=== PATIENT | male | born 1965 | race Caucasian/White ===

== ENCOUNTER 2021-05-26 21:15 | Observation (INO) | payer OTHER ==
[~2021-05-26] VITALS: Ht 185.4 cm; Wt 120.2 kg
[2021-05-26] MEDS ORDERED: NITROGLYCERIN 1GM OINT 1 INCH/1GM TD ONE ×2 (21:30→22:51)
[2021-05-26] MEDS ORDERED: ASPIRIN 81MG CHEW TAB PO ONE (21:30)
[2021-05-26 22:14] LABS: BASOPHILS % (AUTO) 0.6 % (0.0-5.0); EOSINOPHILS % (AUTO) 0.9 % (0.0-8.0); LYMPHOCYTES % (AUTO) 32.6 % (21.0-51.0); MEAN CORPUSCULAR HEMOGLOBIN 31.2 pg (27.0-33.0); MEAN CORPUSCULAR VOLUME 91.6 fL (79-99); MONOCYTES % (AUTO) 8.6 % (3.0-13.0); NEUTROPHILS % (AUTO) 56.9 % (40.0-77.0); PLATELET COUNT (AUTO) 270 K/uL (130-400); RED BLOOD CELL COUNT(AUTO) 5.13 MIL/uL (4.50-6.20); RED CELL DISTRIBUTION WIDTH 11.9 % (11.0-15.5)
[2021-05-26 22:23] LABS: CREATININE 1.2 mg/dL (0.5-1.5); POTASSIUM 4.2 mmol/L (3.5-5.1)
[2021-05-26 22:27] LABS: ALBUMIN 3.5 g/dL (3.5-5.0); BILIRUBIN,TOTAL 0.5 mg/dL (0.2-1.0); TOTAL PROTEIN, SERUM 7.2 g/dL (6.0-8.3)
[2021-05-26] MEDS ORDERED: ASPIRIN 81MG CHEW TAB ONE (22:51)
[2021-05-26] MEDS ORDERED: ONDANSETRON 4MG INJ IV PRN (23:00)
[2021-05-27] VITALS (7 sets, daily range): BP systolic 94–132; BP diastolic 51–77
[2021-05-27] MEDS ORDERED: ATOR40TA71 PO (01:48)
[2021-05-27] MEDS ORDERED: LISI10TA24 PO (01:48)
[2021-05-27] MEDS ORDERED: CLOP75TA14 PO (01:48)
[2021-05-27] MEDS ORDERED: METO25TA6 PO (01:48)
[2021-05-27] MEDS ORDERED: AEC81 PO (01:48)
[2021-05-27 06:19] LABS: BASOPHILS % (AUTO) 0.8 % (0.0-5.0); LYMPHOCYTES % (AUTO) 27.1 % (21.0-51.0); MEAN CORPUSCULAR HEMOGLOBIN 31.4 pg (27.0-33.0); MEAN CORPUSCULAR HGB CONC 33.9 g/dL (32.0-36.0); MEAN CORPUSCULAR VOLUME 92.8 fL (79-99); MONOCYTES % (AUTO) 6.3 % (3.0-13.0); NEUTROPHILS % (AUTO) 63.3 % (40.0-77.0); PLATELET COUNT (AUTO) 246 K/uL (130-400); RED BLOOD CELL COUNT(AUTO) 4.74 MIL/uL (4.50-6.20); RED CELL DISTRIBUTION WIDTH 12.1 % (11.0-15.5); WHITE BLOOD COUNT (AUTO) 10.8 K/uL (4.8-10.8)
[2021-05-27 06:33] LABS: CREATININE 1.1 mg/dL (0.5-1.5); MAGNESIUM 2.2 mg/dL (1.80-2.40); PHOSPHORUS 4.3 mg/dL (2.5-4.9); POTASSIUM 3.8 mmol/L (3.5-5.1)
[2021-05-27] MEDS ORDERED: ENOXAPARIN SODIUM 40 MG/0.4 ML SYRINGE SQ SCH (09:00)
[2021-05-27] MEDS ORDERED: LISINOPRIL 10 MG TABLET PO SCH (09:00)
[2021-05-27] MEDS: FAMOTIDINE 20MG VIAL IV SCH ×2 (09:50→21:26)
[2021-05-27] MEDS: ASPIRIN 81 MG EC TAB PO SCH (09:50)
[2021-05-27] MEDS: CLOPIDOGREL 75MG TAB PO SCH (09:51)
[2021-05-27] MEDS: METOPROLOL TARTRATE 25 MG TAB PO SCH ×2 (09:51→21:26)
[2021-05-27] MEDS ORDERED: NITROGLYCERIN 0.4 MG SL TAB SL PRN (11:00)
[2021-05-27] MEDS ORDERED: ATORVASTATIN 40 MG TABLET PO SCH (21:00)
[2021-05-28] VITALS (9 sets, daily range): BP systolic 113–137; BP diastolic 67–79
[2021-05-28 04:11] LABS: BASOPHILS % (AUTO) 0.9 % (0.0-5.0); HEMATOCRIT 43.8 % (42-54); MEAN CORPUSCULAR HGB CONC 33.6 g/dL (32.0-36.0); MEAN CORPUSCULAR VOLUME 92.4 fL (79-99); MONOCYTES % (AUTO) 7.8 % (3.0-13.0); NEUTROPHILS % (AUTO) 52.9 % (40.0-77.0); PLATELET COUNT (AUTO) 249 K/uL (130-400); RED BLOOD CELL COUNT(AUTO) 4.74 MIL/uL (4.50-6.20); RED CELL DISTRIBUTION WIDTH 11.8 % (11.0-15.5); WHITE BLOOD COUNT (AUTO) 10.3 K/uL (4.8-10.8)
[2021-05-28 04:28] LABS: ALBUMIN 3.2 g/dL (3.5-5.0); BILIRUBIN,TOTAL 0.7 mg/dL (0.2-1.0); CREATININE 1.2 mg/dL (0.5-1.5); TOTAL PROTEIN, SERUM 6.5 g/dL (6.0-8.3)
[2021-05-28 04:45] LABS: INR 0.99 (0.85-1.15); PROTHROMBIN TIME 10.8 SEC (9.6-11.6)
[2021-05-28 04:46] LABS: PARTIAL THROMBOPLASTIN TIME 24.2 SEC (26.3-35.5)
[2021-05-28 05:10] LABS: MAGNESIUM 2.3 mg/dL (1.80-2.40)
[2021-05-28] MEDS ORDERED: IOHEXOL 350 MG/ML 100ML INFUS..BTL IV ONE (08:08)
[2021-05-28] MEDS ORDERED: IOHEXOL-350 50ML VIAL IV ONE (08:08)
[2021-05-28] MEDS ORDERED: NITROGLYCERIN 50MG VIAL ONE (08:08)
[2021-05-28] MEDS ORDERED: MIDAZOLAM HCL 1 MG/ML 2ML VIAL ONE (08:09)
[2021-05-28] MEDS ORDERED: LIDOCAINE HCL 400MG/20ML VIAL ONE (08:09)
[2021-05-28] MEDS ORDERED: FENTANYL CITRATE PF 50 MCG/1 ML 2ML VIAL ONE (08:09)
[2021-05-28] MEDS: ASPIRIN 81 MG EC TAB PO SCH (08:54)
[2021-05-28] MEDS: METOPROLOL TARTRATE 25 MG TAB PO SCH (08:54)
[2021-05-28] MEDS: CLOPIDOGREL 75MG TAB PO SCH (08:55)
[2021-05-28] MEDS: FAMOTIDINE 20MG VIAL IV SCH (08:56)
== END 2021-05-28 14:10 | disposition home or self-care (01) ==
LOC: EDH 21:15 → EDHIP 23:00 → INTOOBSV 23:00 → 4DH 05-27 01:11
PROVIDERS: ADMIT Internal Medicine; ATTEND Internal Medicine
DX: I20.0 Unstable angina (principal); I25.2 Old myocardial infarction; I10 Essential (primary) hypertension; E11.9 Type 2 diabetes mellitus without complications; R07.89 Other chest pain; E78.5 Hyperlipidemia, unspecified; E66.9 Obesity, unspecified; I21.19 ST elevation (STEMI) myocardial infarction involving other coronary artery of inferior wall; I21.3 ST elevation (STEMI) myocardial infarction of unspecified site; F17.210 Nicotine dependence, cigarettes, uncomplicated; R77.8 Other specified abnormalities of plasma proteins; Z79.02 Long term (current) use of antithrombotics/antiplatelets; Z79.82 Long term (current) use of aspirin; Z79.899 Other long term (current) drug therapy; Z95.5 Presence of coronary angioplasty implant and graft; Z82.49 Family history of ischemic heart disease and other diseases of the circulatory system; Z90.49 Acquired absence of other specified parts of digestive tract; Z98.890 Other specified postprocedural states; Z68.35 Body mass index [BMI] 35.0-35.9, adult
CPT/HCPCS: 36415 ×3; 71045; 80048; 80053 ×2; 82330; 82550; 83735 ×2; 83874; 84100; 84484 ×5; 85025 ×3; 85610; 85730; 93005 ×3; 93454; 96374; 96376 ×2; 99285; C1760; C1894 ×2; J1644; J2250; J3010; J3490 ×5; Q9965; Q9967 ×2; 99156; 99157; G0378

== ENCOUNTER 2021-06-19 16:56 | Emergency (ER) | payer OTHER ==
[~2021-06-19] VITALS: Ht 185.4 cm; Wt 124.3 kg
[~2021-06-19 16:56] MED LIST: AEC81 PO; ATOR40TA71 PO; CLOP75TA14 PO; LISI10TA24 PO; METO25TA6 PO
[2021-06-19 17:33] LABS: BASOPHILS % (AUTO) 0.7 % (0.0-5.0); EOSINOPHILS % (AUTO) 1.1 % (0.0-8.0); HEMATOCRIT 45.8 % (42-54); LYMPHOCYTES % (AUTO) 30.1 % (21.0-51.0); MEAN CORPUSCULAR HEMOGLOBIN 31.7 pg (27.0-33.0); MEAN CORPUSCULAR HGB CONC 34.3 g/dL (32.0-36.0); MEAN CORPUSCULAR VOLUME 92.5 fL (79-99); MONOCYTES % (AUTO) 4.3 % (3.0-13.0); NEUTROPHILS % (AUTO) 63.6 % (40.0-77.0); PLATELET COUNT (AUTO) 253 K/uL (130-400); RED BLOOD CELL COUNT(AUTO) 4.95 MIL/uL (4.50-6.20); RED CELL DISTRIBUTION WIDTH 11.8 % (11.0-15.5)
[2021-06-19 17:45] LABS: INR 0.99 (0.85-1.15); PROTHROMBIN TIME 10.8 SEC (9.6-11.6)
[2021-06-19 17:55] LABS: CREATININE 1.2 mg/dL (0.5-1.5); POTASSIUM 3.8 mmol/L (3.5-5.1)
[2021-06-19 18:00] LABS: B-TYPE NATRIURETIC PEPTIDE 25 pg/mL (0-100)
[2021-06-19 18:04] LABS: APPEARANCE,URINE CLEAR (CLEAR); BILIRUBIN,URINE NEGATIVE (NEGATIVE); COLOR,URINE YELLOW (YELLOW); GLUCOSE, URINE (UA) NEGATIVE (NEGATIVE); KETONES,URINE NEGATIVE (NEGATIVE); LEUKOCYTE ESTERASE ,URINE NEGATIVE (NEGATIVE); NITRATE,URINE NEGATIVE (NEGATIVE); OCCULT BLOOD,URINE NEGATIVE (NEGATIVE); PROTEIN,URINE NEGATIVE (NEGATIVE); UROBILINOGEN,URINE 0.2 mg/dL (0.2-1.0)
[2021-06-19 18:07] LABS: ALBUMIN 3.8 g/dL (3.5-5.0); BILIRUBIN,TOTAL 0.5 mg/dL (0.2-1.0); TOTAL PROTEIN, SERUM 7.3 g/dL (6.0-8.3)
[2021-06-19 18:12] LABS: AMPHET/METH SCREEN,URINE NEGATIVE (NEGATIVE); BARBITURATE SCREEN, URINE NEGATIVE (NEGATIVE); BENZODIAZEPINES SCREEN,URINE NEGATIVE (NEGATIVE); CANNABINOID SCREEN,URINE NEGATIVE (NEGATIVE); COCAINE SCREEN,URINE NEGATIVE (NEGATIVE); OPIATE SCREEN,URINE NEGATIVE (NEGATIVE); PHENCYCLIDINE SCREEN,URINE NEGATIVE (NEGATIVE)
[2021-06-19] MEDS ORDERED: 0.9%NACL 1000ML 1,000 ML IV ONE (19:00)
[2021-06-19 19:31] VITALS: BP 110/66
== END 2021-06-19 20:33 | disposition home or self-care (01) ==
LOC: EDH 16:56
DX: R42 Dizziness and giddiness (principal); R00.1 Bradycardia, unspecified; Z79.82 Long term (current) use of aspirin; Z79.899 Other long term (current) drug therapy; Z90.49 Acquired absence of other specified parts of digestive tract
CPT/HCPCS: 36415; 71045; 80053; 80061; 80305; 81003; 82550; 83735; 83874; 83880; 84484; 85025; 85610; 85730; 93005

== ENCOUNTER → 2021-07-18 | Outpatient (CLI) | payer OTHER | END | disposition home or self-care (01) | LOC: SHCH 10:30 | PROVIDERS: ATTEND Internal Medicine Cardiovascular Disease | DX: I11.9 Hypertensive heart disease without heart failure (principal); I25.10 Atherosclerotic heart disease of native coronary artery without angina pectoris | CPT/HCPCS: 93306 ==

== ENCOUNTER 2024-03-07 19:14 | Observation (INO) | payer OTHER ==
[~2024-03-07] VITALS: Ht 185.4 cm; Wt 127.9 kg
[~2024-03-07 19:14] MED LIST changes: +CLOP-31 PO; -CLOP75TA14 PO
[2024-03-07 19:50] LABS: BASOPHILS # (AUTO) 0.05 K/uL (0.00-0.20); BASOPHILS % (AUTO) 0.5 % (0.0-5.0); EOSINOPHILS # (AUTO) 0.15 K/uL (0.00-0.70); EOSINOPHILS % (AUTO) 1.6 % (0.0-8.0); HEMATOCRIT 45.2 % (42-54); IMMATURE GRANULOCYTE ABSOLUTE 0.03 K/uL (0-1); LYMPHOCYTES # (AUTO) 3.2 K/uL (1.0-4.8); LYMPHOCYTES % (AUTO) 34.9 % (21.0-51.0); MEAN CORPUSCULAR HEMOGLOBIN 33.1 pg (27.0-33.0); MEAN CORPUSCULAR HGB CONC 35.8 g/dL (32.0-36.0); MEAN CORPUSCULAR VOLUME 92.2 fL (79-99); MONOCYTES # (AUTO) 0.5 K/uL (0.1-1.0); MONOCYTES % (AUTO) 5.2 % (3.0-13.0); NEUTROPHILS # (AUTO) 5.3 K/uL (1.8-7.7); NEUTROPHILS % (AUTO) 57.5 % (40.0-77.0); PLATELET COUNT (AUTO) 275 K/uL (130-400); RED CELL DISTRIBUTION WIDTH 12.1 % (11.0-15.5); WHITE BLOOD COUNT (AUTO) 9.2 K/uL (4.8-10.8)
[2024-03-07 19:59] LABS: CREATININE 1.1 mg/dL (0.5-1.3); POTASSIUM 4.1 mmol/L (3.5-5.1)
[2024-03-07] MEDS ORDERED: ASPIRIN 81MG CHEW TAB PO ONE (20:00)
--- NOTE | 2024-03-07 20:00 | NUR ---
NITROGLYCERIN HELD, PATIENT HR 63, DENIES CHEST PAIN
[2024-03-07] MEDS: ASPIRIN 81MG CHEW TAB PO ONE (20:01)
[2024-03-07 20:04] LABS: MAGNESIUM 2.2 mg/dL (1.80-2.40)
[2024-03-07] MEDS: morPHINE 4 MG SYG IVP ONE (20:05)
[2024-03-07] MEDS: HEParin 5,000 UNIT VIAL IV PRN (20:06)
[2024-03-07] MEDS: HEParin 25,000 UNITS/250ML D5W 250 ML IV SCH (20:14)
[2024-03-07 20:19] LABS: B-TYPE NATRIURETIC PEPTIDE 5 pg/mL (0-100)
--- NOTE | 2024-03-07 20:21 | HMCIMG ---
Exam Type: CHEST 1VW Clinical Information: SOB Comparison: None Findings: The lungs are clear of infiltrates. The heart is normal in size. The bony and soft tissue structures of the chest are unremarkable. Impression: Clear lungs.
--- NOTE | 2024-03-07 20:22 | ERN ---
General Chief Complaint: Chest Pain Stated Complaint: CHEST PAIN Time Seen by MD: 19:26 History of Present Illness Initial Comments Mr Leon is a 58-year-old male significant past medical history of essential hypertension CAD, tobacco abuse who presents today with a chief complaint of chest pain. Patient was told to come in by his primary care physician for chest pain evaluation. Patient reports that he has been having chest pain that improvemed with nitro. He has a history of stents that were placed 3 years ago. Allergies: Coded Allergies: Egg Derived (Unverified Allergy, Unknown, 05/24/21) egg (Unverified Allergy, Unknown, 05/24/21) Home Meds Reported Medications Metoprolol Tartrate (Metoprolol Tartrate) 25 Mg Tablet, 25 MG PO BID, TAB 05/27/21 Atorvastatin Calcium (Atorvastatin Calcium) 40 Mg Tablet, 40 MG PO HS, TAB 05/27/21 Clopidogrel Bisulfate (Plavix) 75 Mg Tablet, 75 MG PO DAILY, TAB 05/27/21 Lisinopril (Lisinopril) 10 Mg Tablet, 10 MG PO DAILY, TAB 05/27/21 Aspirin (ASPIRIN 81 MG ECTAB) 81 Mg Ectab, 81 MG PO DAILY, TAB.EC 05/27/21 Past Medical History Past Medical History: AR Past Surgical History: Other Surgical History Other: CARDIAC STENTS Family History Family History: Negative Social History Social History: Smokers, Other ROS Dictation Constitutional: Negative for fever,chills, and weight loss Eyes: Negative for injury, pain,redness, and discharge ENT: Negative for injury,pain or swelling Cardiovascular: positive for chest pain Respiratory: Negative for shortness of breath, cough, and wheezing, Abdomen/GI: Negative for abdominal pain, nausea, vomiting, diarrhea, and constipation Back: Negative for injury and pain : Negative for injury, bleeding and discharge MS/Extremity: Negative for injury and deformity Skin: Negative for rash, and discoloration Neuro: Negative for headache, weakness, numbness, tingling, and seizure Psych: Negative for suicide ideation, homicidal ideation, and hallucinations Physical Exam Physical Exam Dictation General: awake, alert, NAD Head/Face: Normocephalic, atraumatic Eyes: PERRL, EOMI, vision at baseline ENT: oral cavity clear Neck: Trachea midline, supple Cardiovascular: RRR, normal S1/S2, No MRGs, no JVD Respiratory: CTAB, no respiratory distress, No rales or wheezes Abdomen: Soft, non-tender, non-distended Skin: Warm, dry, normal turgor, no rash MS/Extremity: Pulses equal, no cyanosis Neuro: COAx4, GCS 15, strength 5/5, CN 2-12 intact Psych: Normal behavior, mood, and affect normal Results Laboratory and Microbiology Lab and Micro Result Laboratory Tests Test 03/07/24 19:39 03/07/24 20:04 White Blood Count 9.2 K/uL (4.8-10.8) Red Blood Count 4.90 MIL/uL (4.50-6.20) Hemoglobin 16.2 g/dL (14.0-18.0) Hematocrit 45.2 % (42-54) Mean Corpuscular Volume 92.2 fL (79-99) Mean Corpuscular Hemoglobin 33.1 pg (27.0-33.0) H Mean Corpuscular Hemoglobin Concent 35.8 g/dL (32.0-36.0) Red Cell Distribution Width 12.1 % (11.0-15.5) Platelet Count 275 K/uL (130-400) Mean Platelet Volume 8.8 fL (7.5-10.5) Immature Granulocyte % (Auto) 0.3 % (0-1) Neutrophils (%) (Auto) 57.5 % (40.0-77.0) Lymphocytes (%) (Auto) 34.9 % (21.0-51.0) Monocytes (%) (Auto) 5.2 % (3.0-13.0) Eosinophils (%) (Auto) 1.6 % (0.0-8.0) Basophils (%) (Auto) 0.5 % (0.0-5.0) Neutrophils # (Auto) 5.3 K/uL (1.8-7.7) Lymphocytes # (Auto) 3.2 K/uL (1.0-4.8) Monocytes # (Auto) 0.5 K/uL (0.1-1.0) Eosinophils # (Auto) 0.15 K/uL (0.00-0.70) Basophils # (Auto) 0.05 K/uL (0.00-0.20) Absolute Immature Granulocyte (auto 0.03 K/uL (0-1) Nucleated Red Blood Cells 0.0 % (0.0-0.19) Activated Partial Thromboplast Time 23.9 SEC (26.3-35.5) L Sodium Level 140 mmol/L (136-145) Potassium Level 4.1 mmol/L (3.5-5.1) Chloride Level 104 mmol/L (101-111) Carbon Dioxide Level 29 mmol/L (21-32) Blood Urea Nitrogen 16 mg/dL (7-18) Creatinine 1.1 mg/dL (0.5-1.3) Glomerular Filtration Rate Calc 79 mL/min (>90) Random Glucose 197 mg/dL (70-105) H Total Calcium 8.7 mg/dL (8.5-10.1) Magnesium Level 2.20 mg/dL (1.80-2.40) Total Creatine Kinase 192 U/L (21-232) # Troponin I High Sensitivity 5 ng/L (4-75) B-Type Natriuretic Peptide 5 pg/mL (0-100) Troponin I < 0.05 ng/mL (0.00-0.05) MDM Patient will be admitted to the hospital for further evaluation and care MDM: Differential diagnosis: Chest pain Rationale: Tests considered and ordered secondary to shared decision making include: labs, ECG and radiology Previous outside records reviewed: Old ER visits. Risk of complication and/or morbidity or mortality of patient management: None Medications-Per medication reconciliation Need for hospitalization: Patient does meet criteria for hospitalization. Need for emergency major/minor surgery: No There are no social concerns with this patient. Prescription drug management Prescriptions will include symptomatic care Patient's prior external medical records from other ER visits were reviewed by me as indicated. Prior testing and results from previous visits were reviewed. Prior tests were taken into account with medical decision making and resource utilization, independent historian/historians were used to obtain complete medical history. I independently interpreted the test that were performed, results were reviewed by me and considered findings on radiology if ordered. Medical management and examination interpretation discussions were had by me with other qualified healthcare professionals as indicated for the patient's care. ED Course Orders Procedure Category Date Status Time Cbc With Differential LAB 03/07/24 Complete 19:32 B-Type Natriuretic LAB 03/07/24 Complete Peptide 19:32 Chest 1vw RAD 03/07/24 Resulted 19:32 Aspirin 81mg Chew Tab PHA 03/07/24 Complete (Aspirin 81mg Chew 20:00 Nitroglycerin 1gm PHA 03/07/24 Complete Oint (Nitroglycerin 1g 20:00 Morphine 4mg Syg PHA 03/07/24 Complete (Morphine 4mg Syg) 20:00 Magnesium LAB 03/07/24 Complete 19:32 Creatine Kinase, Total LAB 03/07/24 Complete 19:32 Troponin I High LAB 03/07/24 Complete Sensitivity 19:32 Urinalysis Profile LAB 03/07/24 Logged 19:32 Partial LAB 03/07/24 Complete Thromboplastin Time 19:32 Troponin Poc Order LAB 03/07/24 Complete Only 19:32 Basic Metabolic Panel LAB 03/07/24 Complete 19:32 Aspirin 81mg Chew Tab PHA 03/07/24 Complete (Aspirin 81mg Chew 20:00 Initiate Heparin KETAN 03/07/24 In Process Treatment Pro 19:42 Heparin 5,000 Unit PHA 03/07/24 In Process Vial (Heparin 5,000 U 20:30 Heparin 25,000 PHA 03/07/24 In Process Units/250ml D5w 20:30 Heparin Protocol CPOE 03/07/24 Transmitted Monitoring 19:42 12 Lead Ekg Tracing- EKG 03/07/24 Logged Technical 20:34 Current Medications Medications (Trade) Dose Ordered Sig/Raj Route PRN Reason Start Time Stop Time Status Last Admin Dose Admin Aspirin (Aspirin 81mg Chew Tab) 81 mg ONCE ONCE PO 03/07/24 20:00 03/07/24 19:59 DC Aspirin (Aspirin 81mg Chew Tab) 324 mg ONCE ONCE PO 03/07/24 20:00 03/07/24 20:01 DC 03/07/24 20:01 Heparin Sodium (Porcine) (HEParin 5,000 UNIT VIAL) *calculation based on ACTUAL B... AD PRN IV HEPARIN PROTOCOL 03/07/24 20:30 04/06/24 20:29 03/07/24 20:06 Heparin Sodium/ Dextrose 250 ml @ 0 mls/hr Q6H IV 03/07/24 20:30 04/06/24 20:29 03/07/24 20:14 Morphine Sulfate (morPHINE 4MG SYG) 4 mg ONCE ONCE IVP 03/07/24 20:00 03/07/24 20:01 DC Nitroglycerin (Nitroglycerin 1gm Oint) 1 inch ONCE ONCE TD 03/07/24 20:00 03/07/24 20:01 DC Vital Signs Date Time Temp Pulse Resp B/P (MAP) Pulse Ox O2 Delivery O2 Flow Rate FiO2 03/07/24 20:34 65 18 122/68 98 Room Air* 0 21 03/07/24 19:19 72 16 144/87 97 Room Air 0 HEART Score Response (Comments) Value History: High suspicion (+2) 2 EKG: Normal 0 Age: 45-65yrs (+1) 1 Risk Factors: 3+ risk factors (+2) 2 Initial Troponin: Normal limit (0) 0 HEART Score Risk: Mod Risk for MACE (4-6) Total 5 DX & DISP Disposition: Inpatient Departure Impression: Primary Impression: Acute chest pain Condition: Stable Referrals: AIDEN JAVIER MD (PCP) MERA DICK MD Mar 07, 2024 20:22
[2024-03-07] MEDS: NITROGLYCERIN 1GM OINT 1 INCH/1GM TD ONE (21:08)
[2024-03-07] MEDS ORDERED: LACTULOSE 20 GM/30 ML UDCUP PO PRN (21:30)
[2024-03-07] MEDS ORDERED: acetaMINOPHEN 650 MG SUPPOSITORY RC PRN (21:30)
[2024-03-07] MEDS ORDERED: ondanSETRON 4MG INJ IVP PRN (21:30)
[2024-03-07] MEDS ORDERED: hydrALAZine 20MG/ML VIAL IV PRN (21:30)
[2024-03-07] MEDS ORDERED: doCUSate SODIUM 100 MG CAP PO PRN (21:30)
[2024-03-07] MEDS ORDERED: acetaMINOPHEN 325 MG TAB PO PRN (21:30)
[2024-03-07] MEDS ORDERED: TEMAZepam 15 MG CAPSULE PO PRN (21:30)
[2024-03-07] MEDS: atorVAStatin 40 MG TABLET PO SCH (22:00)
--- NOTE | 2024-03-07 22:10 | HP ---
[facility] HISTORY AND PHYSICAL Date of Service: Mar 07, 2024 Time of Service: 21:40 PCP: Dr. Sudheer [place] [place] [facility] Attending/supervising physicians: Dr. Mendez & Dr. Turpin HISTORY OF PRESENT ILLNESS: Mr. Leon is a 58-year-old male with history of essential hypertension, CAD, [place] s/p remote cardiac stents, tobacco dependent, pre diabetes, and obesity who present to [facility] ED for evaluation of worsening chest pain onset two weeks. The patient reports that originally the chest pain was epigastric radiating to the right chest. Now the chest pain is epigastric radiating to the left chest. The patient states that touching the area where the chest pain is actually helps the pain. Patient states that today he called his PCP Dr. Levin who informed him to take nitroglycerin for the chest pain. The patient reports that the nitroglycerin actually helped with the chest pain. He states that Dr. Levin was concerned that the nitro helped the chest pain which prompted Dr. Levin to send the patient to the ED for evaluation. ED gave a heart score of a 5. In ED the patient was administered aspirin 324 mg, morphine 4 mg, and was started on heparin drip. Order was placed for nitroglycerin ointment by ED physician but RN reports she did not give because the blood pressure was on the low side. Labs: Troponin and BNP were within normal limit. CBC and CMP were unremarkable, except for the glucose that was 197, a GFR of 79. Chest x-ray: Clear lungs. ED physician request patient be admitted under [facility] hospitalist team with the diagnosis of acute chest pain. Went to assess the patient at bedside. Patient's breathing was even, unlabored, appeared comfortable. Patient reported pain 4/10. 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 I informed the patient of labs, diagnostics, and plan of care. The patient verbalizes understanding and is in agreement with the plan. Plan and assessment are listed below. REVIEW OF SYSTEMS 12-point ROS reviewed with patient. All pertinent positives mentioned above. Otherwise negative, non-pertinent, or noncontributory. PAST MEDICAL HISTORY: As mentioned above PAST SURGICAL HISTORY: Cardiac stents Left shoulder surgery and left ankle surgery Appendectomy Tonsillectomy PAST SOCIAL HISTORY: Tobacco dependence (half a packet per day) FAMILY HISTORY: Mother: Cardiovascular disease Follow up: Diabetes mellitus Coded Allergies: Egg Derived (Unverified Allergy, Unknown, 05/24/21) egg (Unverified Allergy, Unknown, 05/24/21) PHYSICAL EXAM GENERAL APPEARANCE: The patient is awake, alert, and oriented, in no acute cardiopulmonary distress. NEUROLOGICAL: Cranial nerves II-XII grossly intact. Motor is 5/5 in bilateral upper and lower extremities proximal to distal. No sensory deficits. HEENT: Face is symmetric. Pupils are equal and reactive. Extraocular movements are intact. NECK: Supple. No JVD. No thyromegaly. No submental, submandibular, pre- /postauricular, occipital or supraclavicular lymphadenopathy. CHEST: Normal chest expansion. No Telemetry. LUNGS: Absence of any rales, rhonchi or any wheezing. CARDIOVASCULAR: Regular. S1 and S2 normal. No appreciable rubs, murmurs or gallops. ABDOMEN: Obese. Soft, nontender, and nondistended. There is no rebound, voluntary guarding, or rigidity. : Deferred. No [place]. EXTREMITIES: Non-edematous and not cyanotic. No clubbing. Good capillary refill. SKIN: No skin breakdown. Vital Sign (Last 24 Hours) 03/07/24 21:52 Pulse 54 Resp 16 B/P (MAP) 114/68 Pulse Ox 96 O2 Delivery Room Air* O2 Flow Rate 0 FiO2 21 LABS: Laboratory: Test 03/07/24 20:04 03/07/24 19:39 Range/Units Troponin I < 0.05 0.00-0.05 ng/mL White Blood Count 9.2 4.8-10.8 K/uL Red Blood Count 4.90 4.50-6.20 MIL/uL Hemoglobin 16.2 14.0-18.0 g/dL Hematocrit 45.2 42-54 % Mean Corpuscular Volume 92.2 79-99 fL Mean Corpuscular Hemoglobin 33.1 H 27.0-33.0 pg Mean Corpuscular Hemoglobin Concent 35.8 32.0-36.0 g/dL Red Cell Distribution Width 12.1 11.0-15.5 % Platelet Count 275 130-400 K/uL Mean Platelet Volume 8.8 7.5-10.5 fL Immature Granulocyte % (Auto) 0.3 0-1 % Neutrophils (%) (Auto) 57.5 40.0-77.0 % Lymphocytes (%) (Auto) 34.9 21.0-51.0 % Monocytes (%) (Auto) 5.2 3.0-13.0 % Eosinophils (%) (Auto) 1.6 0.0-8.0 % Basophils (%) (Auto) 0.5 0.0-5.0 % Neutrophils # (Auto) 5.3 1.8-7.7 K/uL Lymphocytes # (Auto) 3.2 1.0-4.8 K/uL Monocytes # (Auto) 0.5 0.1-1.0 K/uL Eosinophils # (Auto) 0.15 0.00-0.70 K/uL Basophils # (Auto) 0.05 0.00-0.20 K/uL Absolute Immature Granulocyte (auto 0.03 0-1 K/uL Nucleated Red Blood Cells 0.0 0.0-0.19 % Activated Partial Thromboplast Time 23.9 L 26.3-35.5 SEC Sodium Level 140 136-145 mmol/L Potassium Level 4.1 3.5-5.1 mmol/L Chloride Level 104 101-111 mmol/L Carbon Dioxide Level 29 21-32 mmol/L Blood Urea Nitrogen 16 7-18 mg/dL Creatinine 1.1 0.5-1.3 mg/dL Glomerular Filtration Rate Calc 79 >90 mL/min Random Glucose 197 H 70-105 mg/dL Total Calcium 8.7 8.5-10.1 mg/dL Magnesium Level 2.20 1.80-2.40 mg/dL Total Creatine Kinase 192 # 21-232 U/L Troponin I High Sensitivity 5 4-75 ng/L B-Type Natriuretic Peptide 5 0-100 pg/mL Current Medications Medications (Trade) Dose Ordered Sig/Raj Route PRN Reason Start Time Stop Time Status Last Admin Dose Admin Acetaminophen (TYLenol 325MG TAB) 650 mg Q6H PRN PO FEVER/MILD PAIN LEVEL 1-3 03/07/24 21:30 04/06/24 21:29 Acetaminophen (TYLenol 650MG SUPPOSITORY) 650 mg Q6H PRN RC FEVER / MILD PAIN 1-3 IF NPO 03/07/24 21:30 04/06/24 21:29 Aspirin (Aspirin 81mg Chew Tab) 81 mg DAILY PO 03/08/24 09:00 12/25/24 08:59 Atorvastatin Calcium (LIPItor 40MG) 40 mg HS PO 03/07/24 22:00 04/06/24 21:59 03/07/24 22:00 40 MG Docusate Sodium (COLace 100MG CAP) 100 mg BID PRN PO c 03/07/24 21:30 04/06/24 21:29 Heparin Sodium (Porcine) (HEParin 5,000 UNIT VIAL) *calculation based on ACTUAL B... AD PRN IV HEPARIN PROTOCOL 03/07/24 20:30 04/06/24 20:29 03/07/24 20:06 5,000 UNIT Heparin Sodium/ Dextrose 250 ml @ 0 mls/hr Q6H IV 03/07/24 20:30 04/06/24 20:29 03/07/24 20:14 21.76 MLS/HR Hydralazine HCl (APRESOLine 20MG INJ) 10 mg Q2H PRN IV SBP GREATER THAN 160 03/07/24 21:30 04/06/24 21:29 Insulin Human Regular (humuLIN R 100 UNIT/ML 3ML) INSULIN SLIDING SCAL... ACHS SQ 03/08/24 07:30 04/07/24 07:29 Lactulose (Constulose 20gm/ 30ml Udcup) 20 gm Q6H PRN PO CONSTIPATION 03/07/24 21:30 04/06/24 21:29 Nitroglycerin (Nitroglycerin 1gm Oint) 1 inch Q8H TD 03/08/24 05:00 04/07/24 04:59 Ondansetron HCl (zoFRAN 4MG INJ) 4 mg Q6H PRN IVP NAUSEA/VOMITING 03/07/24 21:30 04/06/24 21:29 Temazepam (restORIL 15 MG CAP) 15 mg HS PRN PO INSOMNIA/SLEEP 03/07/24 21:30 04/06/24 21:29 DIAGNOSTICS / RADIOLOGY: [ ] ASSESSMENT: Chest pain r/o cardiac etiology, first trop negative Pre diabetes with hyperglycemia Acute on chronic kidney disease, GFR 79 (GFR in 2021 ranged from 67 to 83) LVEF 55-60%, left atrium moderate to severe dilated, per echo on 07/18/2021 Hypertension CAD, HX ME s/p remote cardiac stents Obesity, BMI 37.2 Tobacco dependent PLAN: Admit to PCCU with continuous telemetry monitoring. Continue heparin drip started by ED provider. Troponin levels and EKGs series. Cardiology consult in the morning. 2D echo in a.m. with heart clinic to read. Nitroglycerin 1 in TD q.8 hours scheduled. Aspirin 81 mg p.o. daily. Atorvastatin 40 mg p.o. q.h.s.. Nicotine patch 4 mg TD daily. Blood pressure checks every4 hours and as needed. P.r.n. medications for pain management, nausea, vomiting, constipation, hypertension. Reconcile home medications once available. Glucometer checks before meals and at bedtime with insulin regular sliding scale. Monitor renal and liver function. Monitor electrolytes and treat accordingly. A.m. labs: CBC, BMP, Mag, phos, A1c, TSH, troponin. DVT and GI prophylaxis: Heparin and Pepcid. Pending D-dimer. ADVANCED CARE PLANNING 1. Which of the following were discussed? Hospice Care - No Therapeutic options - Yes Advance Directives - Yes Other discussions - 2. Discussed with who? Patient 3. Voluntary nature of this service was explained to the patient? Yes 4. Amount of time spent - ___ over 35 minutes ____ 5. Reviewed by Physician? (if this service was performed by NPP) Yes Patient seen and examined by me. Agree with note by AIR POLLUTION CONTROL ENGINEER SEE ADDITIONAL ORDERS PER CHART DISCUSSED WITH NURSING STAFF RYLAND TAYLOR Mar 07, 2024 22:10
--- NOTE | 2024-03-07 22:27 | NUR ---
PATIENT CARE ENDORSED TO BERYL TESFAYE
[2024-03-07] MEDS: NICOTINE 14 MG/ 24 HR PATCH TD SCH (23:10)
--- NOTE | 2024-03-07 23:31 | NUR ---
Patient refused nicotine patch at this time.
[2024-03-07 23:52] LABS: APPEARANCE,URINE CLEAR (CLEAR); BILIRUBIN,URINE NEGATIVE (NEGATIVE); COLOR,URINE YELLOW (YELLOW); GLUCOSE, URINE (UA) TRACE mg/dL (NEGATIVE); KETONES,URINE NEGATIVE (NEGATIVE); LEUKOCYTE ESTERASE ,URINE NEGATIVE Leu/uL (NEGATIVE); NITRATE,URINE NEGATIVE (NEGATIVE); OCCULT BLOOD,URINE NEGATIVE (NEGATIVE); PROTEIN,URINE 20 mg/dL (NEGATIVE)
[2024-03-07 23:54] LABS: ADD UA MICROSCOPIC YES
[2024-03-07 23:55] LABS: BACTERIA,URINE FEW /HPF (None Seen); MUCUS,URINE RARE LPF (None Seen); SQUAMOUS EPITHELIAL CELL,UR RARE /HPF (0-2)
[2024-03-08 00:03] LABS: AMPHET/METH SCREEN,URINE NEGATIVE (NEGATIVE); BARBITURATE SCREEN, URINE NEGATIVE (NEGATIVE); BENZODIAZEPINES SCREEN,URINE NEGATIVE (NEGATIVE); CANNABINOID SCREEN,URINE NEGATIVE (NEGATIVE); COCAINE SCREEN,URINE NEGATIVE (NEGATIVE); OPIATE SCREEN,URINE NEGATIVE (NEGATIVE); PHENCYCLIDINE SCREEN,URINE NEGATIVE (NEGATIVE)
[2024-03-08] MEDS: FAMOTIDINE 20MG TAB PO SCH (00:21)
[2024-03-08] MEDS: NITROGLYCERIN 1GM OINT 1 INCH/1GM TD SCH (04:42)
--- NOTE | 2024-03-08 04:42 | NUR ---
Nitroglycerin ointment Held at this time. Heart rate 49 bpm. Patient noted sleeping in bed. Respirations even and unlabored. No signs or symptoms of discomfort noted.
[2024-03-08] MEDS: INSULIN humuLIN R 100 UNIT/ML 3ML SQ SCH (06:49)
--- NOTE | 2024-03-08 06:49 | NUR ---
RBS 102 mg/dL No insulin coverage needed at this time per insulin sliding scale.
--- NOTE | 2024-03-08 07:10 | NUR ---
PT LAB DRAWN AT 07:10.
[2024-03-08 07:25] LABS: BASOPHILS # (AUTO) 0.07 K/uL (0.00-0.20); BASOPHILS % (AUTO) 0.8 % (0.0-5.0); EOSINOPHILS # (AUTO) 0.21 K/uL (0.00-0.70); EOSINOPHILS % (AUTO) 2.4 % (0.0-8.0); HEMATOCRIT 47.2 % (42-54); IMMATURE GRANULOCYTE ABSOLUTE 0.03 K/uL (0-1); LYMPHOCYTES # (AUTO) 3.9 K/uL (1.0-4.8); LYMPHOCYTES % (AUTO) 44.3 % (21.0-51.0); MEAN CORPUSCULAR HEMOGLOBIN 32.7 pg (27.0-33.0); MEAN CORPUSCULAR HGB CONC 35.2 g/dL (32.0-36.0); MEAN CORPUSCULAR VOLUME 92.9 fL (79-99); MONOCYTES # (AUTO) 0.5 K/uL (0.1-1.0); MONOCYTES % (AUTO) 5.3 % (3.0-13.0); NEUTROPHILS # (AUTO) 4.1 K/uL (1.8-7.7); NEUTROPHILS % (AUTO) 46.9 % (40.0-77.0); PLATELET COUNT (AUTO) 256 K/uL (130-400); RED BLOOD CELL COUNT(AUTO) 5.08 MIL/uL (4.50-6.20); RED CELL DISTRIBUTION WIDTH 12.1 % (11.0-15.5); WHITE BLOOD COUNT (AUTO) 8.8 K/uL (4.8-10.8)
[2024-03-08 07:34] LABS: HEMOGLOBIN A1C 5.4 % (4.0-6.0)
--- NOTE | 2024-03-08 07:40 | EKG ---
[facility] Test Date: 2024-03-07 Test Time: 19:26:06 Pat Name: KLARISSA IVERSON Department: EDHIP Room: 420 Gender: M Electronic Intelligence Officer: [id number] : 1965 Requested By: MERA DICK Order Number: [id number] Reading MD: Ines Mora Measurements Intervals [place] Rate: 69 P: 8 MN: 150 QRS: 17 QRSD: 92 T: 37 QT: 402 QTc: 432 Interpretive Statements Sinus rhythm Compared to ECG 07/05/2021 16:53:17 No significant changes Electronically Signed On 03-08-2024 10:50:57 RECORD LABEL INTERNSHIP by Ines Mora Please click the below link to view image of tracing.
--- NOTE | 2024-03-08 07:40 | EKG ---
[facility] Test Date: 2024-03-08 Test Time: 05:56:23 Pat Name: KLARISSA IVERSON Department: EDHIP Room: 420 Gender: M Roll Setter: [id number] : 1965 Requested By: RYLAND TAYLOR Order Number: [id number] Reading MD: Ines Mora Measurements Intervals [place] Rate: 52 P: -8 WV: 166 QRS: 37 QRSD: 101 T: 63 QT: 454 QTc: 422 Interpretive Statements Sinus rhythm Borderline ST elevation, anterolateral leads Compared to ECG 03/07/2024 19:26:06 ST (T wave) deviation now present Electronically Signed On 03-08-2024 10:51:28 ARMOR RECONNAISSANCE SPECIALIST by Ines Mora Please click the below link to view image of tracing.
--- NOTE | 2024-03-08 07:40 | EKG ---
[facility] Test Date: 2024-03-08 Test Time: 07:23:05 Pat Name: KLARISSA IVERSON Department: EDHIP Room: 420 Gender: M Grain Buyer: [id number] : 1965 Requested By: RYLAND TAYLOR Order Number: [id number] Reading MD: Ines Mora Measurements Intervals [place] Rate: 52 P: 7 OR: 162 QRS: 20 QRSD: 85 T: 49 QT: 449 QTc: 420 Interpretive Statements Sinus rhythm Borderline ST elevation, anterolateral leads Compared to ECG 03/08/2024 05:56:23 No significant changes Electronically Signed On 03-08-2024 10:51:32 GRAVITY MANAGER by Ines Mora Please click the below link to view image of tracing.
[2024-03-08 07:47] LABS: CREATININE 1.1 mg/dL (0.5-1.3); MAGNESIUM 2.1 mg/dL (1.80-2.40); PHOSPHORUS 3.9 mg/dL (2.5-4.9); POTASSIUM 4.7 mmol/L (3.5-5.1); THYROID STIMULATING HORMONE 1.06 uIU/mL (0.36-3.74)
--- NOTE | 2024-03-08 07:50 | NUR ---
HEPARIN ON HOLD (SEE EMR FOR PTT)
--- NOTE | 2024-03-08 08:10 | NUR ---
PATIENTS HEPARIN RESTARTED AT 0810 AND DECREASED BY TWO UNITS PER PROTOCOL
[2024-03-08] MEDS: ASPIRIN 81MG CHEW TAB PO SCH (08:23)
[2024-03-08] MEDS ORDERED: LISI20TA24 PO (08:35)
[2024-03-08] MEDS ORDERED: RANO500T6 PO (08:35)
[2024-03-08] MEDS ORDERED: PRAV40TA3 PO (08:35)
[2024-03-08] MEDS ORDERED: ESCI5TAB16 PO (08:35)
--- NOTE | 2024-03-08 08:35 | NUR ---
MED RECON COMPLETED
--- NOTE | 2024-03-08 10:15 | PN ---
[facility] PROGRESS NOTE Date of Service: Mar 08, 2024 Time of Service: 10:14 SUBJECTIVE: [ ] REVIEW OF SYSTEMS 12-point ROS reviewed with patient. All pertinent positives mentioned above. Otherwise negative, non-pertinent, or noncontributory. PHYSICAL EXAM GENERAL APPEARANCE: The patient is awake, alert, and oriented, in no acute cardiopulmonary distress. NEUROLOGICAL: Cranial nerves II-XII grossly intact. Motor is 5/5 in bilateral upper and lower extremities proximal to distal. No sensory deficits. HEENT: Face is symmetric. Pupils are equal and reactive. Extraocular movements are intact. NECK: Supple. No JVD. No thyromegaly. No submental, submandibular, pre- /postauricular, occipital or supraclavicular lymphadenopathy. CHEST: Normal chest expansion. No Telemetry. LUNGS: Absence of any rales, rhonchi or any wheezing. CARDIOVASCULAR: Regular. S1 and S2 normal. No appreciable rubs, murmurs or gallops. ABDOMEN: Obese. Soft, nontender, and nondistended. There is no rebound, voluntary guarding, or rigidity. : Deferred. No [place]. EXTREMITIES: Non-edematous and not cyanotic. No clubbing. Good capillary refill. SKIN: No skin breakdown. Vital Signs (last 8hr) Date Time Temp Pulse Resp B/P (MAP) Pulse Ox O2 Delivery O2 Flow Rate FiO2 03/08/24 07:17 97.5 54 14 103/82 98 Room Air* 0 21 03/08/24 04:40 49 14 99/49 95 Room Air* 0 21 03/08/24 02:33 98.2 53 13 104/69 93 Room Air* 0 21 LABS: Laboratory: Test 03/08/24 07:10 03/08/24 06:48 03/07/24 23:39 03/07/24 20:04 Range/Units White Blood Count 8.8 4.8-10.8 K/uL Red Blood Count 5.08 4.50-6.20 MIL/uL Hemoglobin 16.6 14.0-18.0 g/dL Hematocrit 47.2 42-54 % Mean Corpuscular Volume 92.9 79-99 fL Mean Corpuscular Hemoglobin 32.7 27.0-33.0 pg Mean Corpuscular Hemoglobin Concent 35.2 32.0-36.0 g/dL Red Cell Distribution Width 12.1 11.0-15.5 % Platelet Count 256 130-400 K/uL Mean Platelet Volume 9.0 7.5-10.5 fL Immature Granulocyte % (Auto) 0.3 0-1 % Neutrophils (%) (Auto) 46.9 40.0-77.0 % Lymphocytes (%) (Auto) 44.3 21.0-51.0 % Monocytes (%) (Auto) 5.3 3.0-13.0 % Eosinophils (%) (Auto) 2.4 0.0-8.0 % Basophils (%) (Auto) 0.8 0.0-5.0 % Neutrophils # (Auto) 4.1 1.8-7.7 K/uL Lymphocytes # (Auto) 3.9 1.0-4.8 K/uL Monocytes # (Auto) 0.5 0.1-1.0 K/uL Eosinophils # (Auto) 0.21 0.00-0.70 K/uL Basophils # (Auto) 0.07 0.00-0.20 K/uL Absolute Immature Granulocyte (auto 0.03 0-1 K/uL Nucleated Red Blood Cells 0.0 0.0-0.19 % Activated Partial Thromboplast Time 98.2 *H 26.3-35.5 SEC Sodium Level 144 136-145 mmol/L Potassium Level 4.7 3.5-5.1 mmol/L Chloride Level 106 101-111 mmol/L Carbon Dioxide Level 31 21-32 mmol/L Blood Urea Nitrogen 14 7-18 mg/dL Creatinine 1.1 0.5-1.3 mg/dL Glomerular Filtration Rate Calc 79 >90 mL/min Random Glucose 102 70-105 mg/dL Hemoglobin A1c 5.4 4.0-6.0 % Estimated Average Glucose (eAG) 108 70-126 mg/dL Total Calcium 8.7 8.5-10.1 mg/dL Phosphorus Level 3.9 2.5-4.9 mg/dL Magnesium Level 2.10 1.80-2.40 mg/dL Troponin I High Sensitivity 6 4-75 ng/L Thyroid Stimulating Hormone (TSH) 1.06 0.36-3.74 uIU/mL Whole Blood Glucose 102 70-110 MG/DL Urine Color YELLOW YELLOW Urine Appearance CLEAR CLEAR Urine pH 6.0 5.0-8.0 Urine Specific [place] 1.032 H 1.001-1.031 Urine Protein 20 H NEGATIVE mg/dL Urine Glucose (UA) TRACE H NEGATIVE mg/dL Urine Ketones NEGATIVE NEGATIVE mg/dL Urine Occult Blood NEGATIVE NEGATIVE Urine Nitrate NEGATIVE NEGATIVE Urine Bilirubin NEGATIVE NEGATIVE mg/dL Urine Urobilinogen 2.0 H 0.2-1.0 mg/dL Urine Leukocyte Esterase NEGATIVE NEGATIVE Sara/uL Urine RBC 2-5 H 0-1 /HPF Urine WBC 2-5 H 0-1 /HPF Urine Squamous Epithelial Cells RARE 0-2 /HPF Urine Bacteria FEW None Seen /HPF Urine Hyaline Casts 2-5 H 0-1 /LPF /LPF Urine Opiates Screen NEGATIVE NEGATIVE Urine Barbiturates Screen NEGATIVE NEGATIVE Urine Phencyclidine Screen NEGATIVE NEGATIVE Urine Amphetamines Screen NEGATIVE NEGATIVE Urine Benzodiazepines Screen NEGATIVE NEGATIVE Urine Cocaine Screen NEGATIVE NEGATIVE Urine Marijuana (THC) Screen NEGATIVE NEGATIVE Troponin I < 0.05 0.00-0.05 ng/mL Test 03/07/24 19:39 Range/Units D-Dimer Quantitative (PE/DVT) 369 0-500 ng/mL Total Creatine Kinase 192 # 21-232 U/L B-Type Natriuretic Peptide 5 0-100 pg/mL Current Medications Medications (Trade) Dose Ordered Sig/Raj Route PRN Reason Start Time Stop Time Status Last Admin Dose Admin Acetaminophen (TYLenol 325MG TAB) 650 mg Q6H PRN PO FEVER/MILD PAIN LEVEL 1-3 03/07/24 21:30 04/06/24 21:29 Acetaminophen (TYLenol 650MG SUPPOSITORY) 650 mg Q6H PRN RC FEVER / MILD PAIN 1-3 IF NPO 03/07/24 21:30 04/06/24 21:29 Aspirin (Aspirin 81mg Chew Tab) 81 mg DAILY PO 03/08/24 09:00 04/07/24 08:59 03/08/24 08:23 81 MG Atorvastatin Calcium (LIPItor 40MG) 40 mg HS PO 03/07/24 22:00 04/06/24 21:59 03/07/24 22:00 40 MG Docusate Sodium (COLace 100MG CAP) 100 mg BID PRN PO c 03/07/24 21:30 04/06/24 21:29 Famotidine (Pepcid 20mg Tab) 40 mg BID PO 03/07/24 22:30 04/06/24 22:29 03/08/24 08:23 40 MG Heparin Sodium (Porcine) (HEParin 5,000 UNIT VIAL) *calculation based on ACTUAL B... AD PRN IV HEPARIN PROTOCOL 03/07/24 20:30 04/06/24 20:29 03/07/24 20:06 5,000 UNIT Heparin Sodium/ Dextrose 250 ml @ 0 mls/hr Q6H IV 03/07/24 20:30 04/06/24 20:29 03/07/24 20:14 21.76 MLS/HR Hydralazine HCl (APRESOLine 20MG INJ) 10 mg Q2H PRN IV SBP GREATER THAN 160 03/07/24 21:30 04/06/24 21:29 Insulin Human Regular (humuLIN R 100 UNIT/ML 3ML) INSULIN SLIDING SCAL... ACHS SQ 03/08/24 07:30 04/07/24 07:29 Lactulose (Constulose 20gm/ 30ml Udcup) 20 gm Q6H PRN PO CONSTIPATION 03/07/24 21:30 04/06/24 21:29 Nicotine (Nicoderm) 14 mg Q24H TD 03/07/24 23:10 04/06/24 23:09 Nitroglycerin (Nitroglycerin 1gm Oint) 1 inch Q8H TD 03/08/24 05:00 04/07/24 04:59 Ondansetron HCl (zoFRAN 4MG INJ) 4 mg Q6H PRN IVP NAUSEA/VOMITING 03/07/24 21:30 04/06/24 21:29 Temazepam (restORIL 15 MG CAP) 15 mg HS PRN PO INSOMNIA/SLEEP 03/07/24 21:30 04/06/24 21:29 DIAGNOSTICS / RADIOLOGY: [place] [address] IMAGING REPORT Signed PATIENT: KLARISSA IVERSON MR#: [id number] : 1965 SEX: M AGE: 58 LOCATION: [facility] ORDER 33 STATUS: REG ER REPORT#: [id number] SERVICE 31 REASON: SOB ORDERING PHYSICIAN: DICK,GAMAL MD PROCEDURE: CXR1VW - CHEST 1VW Exam Type: CHEST 1VW Clinical Information: SOB Comparison: None Findings: The lungs are clear of infiltrates. The heart is normal in size. The bony and soft tissue structures of the chest are unremarkable. Impression: Clear lungs. DICTATED BY: RAFI ROBISON MD DATE: 03/07/242015 ELECTRONICALLY SIGNED BY: RAFI ROBISON MD DATE: 03/07/242020 ASSESSMENT: Chest pain r/o cardiac etiology, first trop negative Pre diabetes with hyperglycemia Acute on chronic kidney disease, GFR 79 (GFR in 2021 ranged from 67 to 83) LVEF 55-60%, left atrium moderate to severe dilated, per echo on 07/18/2021 Hypertension CAD, HX CA s/p remote cardiac stents Obesity, BMI 37.2 Tobacco dependent PLAN: Admit to PCCU with continuous telemetry monitoring. Continue heparin drip started by ED provider. Troponin levels and EKGs series. Cardiology consult in the morning. 2D echo in a.m. with heart clinic to read. Nitroglycerin 1 in TD q.8 hours scheduled. Aspirin 81 mg p.o. daily. Atorvastatin 40 mg p.o. q.h.s.. Nicotine patch 4 mg TD daily. Blood pressure checks every4 hours and as needed. P.r.n. medications for pain management, nausea, vomiting, constipation, hypertension. Reconcile home medications once available. Glucometer checks before meals and at bedtime with insulin regular sliding scale. Monitor renal and liver function. Monitor electrolytes and treat accordingly. A.m. labs: CBC, BMP, Mag, phos, A1c, TSH, troponin. DVT and GI prophylaxis: Heparin and Pepcid. Pending D-dimer. MICHAEL PENNINGTON MD Mar 08, 2024 10:15
--- NOTE | 2024-03-08 10:38 | NUR ---
SN MADE ATTEMPTS TO START 2ND IV. PATIENT REFUSED 2ND IV AT THIS TIME.
--- NOTE | 2024-03-08 10:57 | NUR ---
PATIENT ADVISED BY ADMITTING THAT HE IS TO BE DISCHARGED. PATIENT PENDING TRANSPORT TO ROOM 420. ORDER CLARIFICATION PENDING.
--- NOTE | 2024-03-08 11:07 | NUR ---
SPOKE TO [place] NP AND SHE STATES SHE IS CALLING THE RESIDENT AND WILL CALL BACK WITH ORDERS.
--- NOTE | 2024-03-08 11:09 | DS ---
Discharge Summary Hospital Course Summary: Mr. Iverson is a 58-year-old male with history of essential hypertension, CAD, AL s/p remote cardiac stents, tobacco dependent, pre diabetes, and obesity who presented to [facility] ED for evaluation of worsening chest pain onset two weeks. The patient reported that originally the chest pain was epigastric radiating to the right chest. The patient stated that touching the area where the chest pain is actually helps the pain. Patient stated that on 03/07/24 he called his PCP Dr. Levin who informed him to take nitroglycerin for the chest pain. The patient reported that the nitroglycerin actually helped with the chest pain. Patient came in to the ED for evaluation for chest pain. In ED the patient was administered aspirin 325 mg, morphine 4 mg, and was started on heparin drip. Labs: Troponin and BNP were within normal limit. CBC and CMP were unremarkable, except for the glucose that was 197, a GFR of 79. Chest x-ray: Clear lungs. EKG showed normal sinus rhythm. 2D echo showed LVEF 55-60%.Trended down his troponin levels 5-7-6. His vitals have been stable. He was started on heparin drip. His APTT was elevated 98.2. Today, when seen he was asymptomatic and chest pain went away. He is asking to get discharged since his cardiac work up has been negative. He is clinically stable for discharge. Patient to follow up with PCP Dr. Levin in 3-5 days and [employer] [address]. Nguyen in 1 week upon discharge. Procedure(s): [address] [id number] IMAGING REPORT Signed PATIENT: KLARISSA IVERSON MR#: [id number] : 1965 SEX: M AGE: 58 LOCATION: [facility]H ORDER 33 STATUS: REG ER REPORT#: [id number] SERVICE 31 REASON: SOB ORDERING PHYSICIAN: MERA DICK MD PROCEDURE: CXR1VW - CHEST 1VW Exam Type: CHEST 1VW Clinical Information: SOB Comparison: None Findings: The lungs are clear of infiltrates. The heart is normal in size. The bony and soft tissue structures of the chest are unremarkable. Impression: Clear lungs. DICTATED BY: RAFI ROBISON MD DATE: 03/07/242015 ELECTRONICALLY SIGNED BY: RAFI ROBISON MD DATE: 03/07/242020 2D ECHO FORMAL REPORT PENDING Assessment/Plan: ASSESSMENT: Chest pain r/o cardiac etiology, trops negative Pre diabetes with hyperglycemia Acute on chronic kidney disease, GFR 79 (GFR in 2021 ranged from 67 to 83) LVEF 55-60%, left atrium moderate to severe dilated, per echo on 07/18/2021 Hypertension CAD, HX AL s/p remote cardiac stents Obesity, BMI 37.2 Tobacco dependent Discharge Instructions: ADMISSION DATE : 03/07/24 DISCHARGE DATE : 03/08/24 DISPOSITION : Home CONDITION : Stable Glove Cutter(s) : None FOLLOW UP APPOINTMENTS : Patient to follow-up with the PCP within 3-5 days and [employer]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 PROCEDURES : None IMAGING (s) : Report attached to summary : Chest x-ray, 2D echo and EKG MICROBIOLOGY : None ACTIVITY : ab felecia HOME MEDICATIONS : Continue NEW MEDICATIONS : None TEACHING : We reinforced the importance of medication compliance and with follow up appointments. 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 Emergency instructions : The patient was instructed to present to the nearest Emergency Department or call 911 should their symptoms return or worsen. Home Medications: Reported Medications Ranolazine (Ranolazine ER) 500 Mg Tab.er.12h, 1 TAB PO BID for 30 Days, #60 TAB 0 Refills 03/08/24 Escitalopram Oxalate (Escitalopram Oxalate) 5 Mg Tablet, 1 TAB PO DAILY for 30 Days, #30 TAB 0 Refills 03/08/24 Pravastatin Sodium (Pravastatin Sodium) 40 Mg Tablet, 80 MG PO HS, TAB 03/08/24 Lisinopril (Lisinopril) 20 Mg Tablet, 1 TAB PO DAILY for 30 Days, #30 TAB 0 Refills 03/08/24 Aspirin (ASPIRIN 81 MG ECTAB) 81 Mg Ectab, 81 MG PO DAILY, TAB.EC 05/27/21 Discontinued Reported Medications Metoprolol Tartrate (Metoprolol Tartrate) 25 Mg Tablet, 25 MG PO BID, TAB 05/27/21 Atorvastatin Calcium (Atorvastatin Calcium) 40 Mg Tablet, 40 MG PO HS, TAB 05/27/21 Clopidogrel Bisulfate (Plavix) 75 Mg Tablet, 75 MG PO DAILY, TAB 05/27/21 Lisinopril (Lisinopril) 10 Mg Tablet, 10 MG PO DAILY, TAB 05/27/21 Continued Medications: Aspirin (Aspirin 81 Mg Ectab) 81 Mg Ectab 81 MG PO DAILY, TAB.EC Escitalopram Oxalate (Escitalopram Oxalate) 5 Mg Tablet 1 TAB PO DAILY for 30 Days, #30 TAB 0 Refills Lisinopril (Lisinopril) 20 Mg Tablet 1 TAB PO DAILY for 30 Days, #30 TAB 0 Refills Pravastatin Sodium (Pravastatin Sodium) 40 Mg Tablet 80 MG PO HS, TAB Ranolazine (Ranolazine ER) 500 Mg Tab.er.12h 1 TAB PO BID for 30 Days, #60 TAB 0 Refills Time spent arranging discharge: 1-30 minutes ATTESTATION BY PHYSICIAN I have seen and examined the patient. I reviewed the documentation, medical decision making, and treatment plan as noted by the resident provider above. I agree with the findings and plan of care. Milena Turpin MD, KRUPALI P MD Mar 08, 2024 11:09
--- NOTE | 2024-03-08 11:31 | NUR ---
CALLED [facility]TH [facility]LOOR AND SPOKE TO SÁNCHEZ AND INFORMED HER OF PT DC FROM THE ER AND IF THEY CAN PLEASE SEND A NURSE TO DC FROM [facility]TH [facility]LOOR.
[2024-03-08 11:40] VITALS: BP 114/66; PULSE 61; RESP 14; TEMP 98.1; O2SAT 98
--- NOTE | 2024-03-08 11:43 | NUR ---
PATIENT DENES HX OF DM
--- NOTE | 2024-03-08 17:41 | HMCSR ---
APPROVED REPORT EXAM: Two-dimensional and M-mode echocardiogram with Doppler and color Doppler. INDICATION ICD: Chest Pain 2D Dimensions RVDd4.4 cmLVEF(%)61.8 (>50%)LVED Vol(simp.)119.0 mL IVSd0.8 (0.7-1.1cm)FS(%)33 %LVES Vol(simp.)52.2 mL LVDd5.1 (3.8-5.6cm)LA (2D)4.8 (1.6-4.0cm)LVEF(%, simp.)56 % PWd1.2 (0.7-1.1cm)Ao Root(2D)3.4 (2.0-3.7cm)LA ESV INDEX (4CH)30.90 mL/m2 IVSs1.7 cmLVOT diam1.9 (1.8-2.4cm)LA ESV INDEX (2CH)30.10 mL/m2 LVDs3.4 (2.5-4.0cm)LA ESV INDEX (BP)28.80 mL/m2 PWs1.7 cm Deformation Strain Apical 420.0 % Apical 219.0 % Apical 322.0 % Global Ruqfol11.0 % M-Mode Dimensions EPSS0.9 cm LA (MM)5.0 (1.6-4.0cm) Ao Root(MM)3.3 (2.0-3.7cm) Aortic Valve AoV VTI0.3 mAo Mean GR3.0 mmHgLVOT VTI0.26 m YAYO (VMAX)2.5 cm2AVA (VTI) 2.5 cm2 Mitral Valve MV E Vmax60.1 cm/sDECEL Jwzh313 ms MV A Vmax71.8 cm/sP 1/2 T70 ms E/A ratio0.8MVA (PHT)3.2 cm2 TDI E/E' Medial9.4E/E' Lateral6.1 Medial E' Peak V6.40 cm/sLateral E' Peak V9.80 cm/s Medial A' Peak V8.70 cm/s Medial E'/A'0.7 Left Ventricle The left ventricle is normal size. GLS -21% There is normal left ventricular wall thickness. LVEF is 55-60%. The left ventricular diastolic function is normal. Right Ventricle The right ventricle is mildly dilated. The right ventricular systolic function is normal. Atria The left atrium size is normal. The right atrium is moderately dilated. Aortic Valve The aortic valve is normal in structure. No aortic regurgitation is present. There is no aortic valvu lar stenosis. Mitral Valve The mitral valve is normal in structure. There is no mitral valve regurgitation noted. There is no mi tral valve stenosis. Tricuspid Valve The tricuspid valve is normal in structure. There is no tricuspid valve regurgitation noted. Pulmonic Valve The pulmonary valve is normal in structure. There is no pulmonic valvular regurgitation. Great Vessels The aortic root is normal in size. The IVC is normal in size and collapses >50% with inspiration. Pericardium There is no pericardial effusion. Other Information Quality : GoodRhythm : NSR Conclusion LVEF is 55-60%. The left ventricular diastolic function is normal. The right ventricle is mildly dilated.
== END 2024-03-08 15:00 | disposition home or self-care (01) ==
LOC: EDH 19:14 → EDHIP 21:20 → INTOOBSV 21:20 → 4CH 03-08 10:15 → EDHIP 03-08 13:50
PROVIDERS: ADMIT Hospitalist; ATTEND Hospitalist
DX: R07.89 Other chest pain (principal); I12.9 Hypertensive chronic kidney disease with stage 1 through stage 4 chronic kidney disease, or unspecified chronic kidney disease; N18.9 Chronic kidney disease, unspecified; E66.9 Obesity, unspecified; I25.2 Old myocardial infarction; I25.10 Atherosclerotic heart disease of native coronary artery without angina pectoris; K59.00 Constipation, unspecified; R73.03 Prediabetes; F17.200 Nicotine dependence, unspecified, uncomplicated; Z68.37 Body mass index [BMI] 37.0-37.9, adult; Z79.82 Long term (current) use of aspirin; Z95.5 Presence of coronary angioplasty implant and graft; Z90.49 Acquired absence of other specified parts of digestive tract; Z90.89 Acquired absence of other organs; Z79.899 Other long term (current) drug therapy; Z91.012 Allergy to eggs
CPT/HCPCS: 99285; 96365; 71045; 96366 ×2; 96376; 82550; 83735 ×2; 84484 ×4; 80048 ×2; 83880; 80305; 85025 ×2; 85378; 85730 ×3; 36415 ×2; 93005 ×3; 81001; 93306; 83036; 84443; 84100; 82948; 93356; J1644 ×2; G0378; J2270

== ENCOUNTER → 2024-07-20 | Outpatient (CLI) | payer OTHER ==
[~2024-07-20] MED LIST changes: -ATOR40TA71 PO; -CLOP-31 PO; +ESCI5TAB16 PO; +IOHEXOL 350 MG/ML 100ML INFUS..BTL IV ONE; +IOHEXOL-350 75 ML VIAL IV ONE; -LISI10TA24 PO; +LISI20TA24 PO; -METO25TA6 PO; +PRAV40TA3 PO; +RANO500T6 PO; +metoPROLOL tartRATE 1 MG/ML 5ML VIAL IV ONE
--- NOTE | 2024-07-20 10:25 | HMCIMG ---
CT CARDIAC ANGIO W/CONT. CCTA HISTORY: Atherosclerotic heart disease COMPARISON: None TECHNIQUE: Multiple sequential axial images of the chest were obtained along with the CT angiogram of the chest study. Patient was given 100 cc of Omnipaque through intravenous route. FINDINGS: There is no evidence of pulmonary nodule or parenchymal disease. No pleural effusion or pericardial effusion is seen. There is no evidence of pneumothorax. There are normal size mediastinal and hilar lymph nodes. Coronary arterial calcifications are seen. A small hiatal hernia is seen. The heart is not enlarged. Degenerative changes of the thoracolumbar spine are present. IMPRESSION: 1. No evidence of pulmonary nodule or effusion is seen. Please see CT angiogram report of coronary arteries.
== END | disposition home or self-care (01) ==
LOC: RAH 07:27
PROVIDERS: ATTEND Internal Medicine Cardiovascular Disease
DX: I25.10 Atherosclerotic heart disease of native coronary artery without angina pectoris (principal); I21.19 ST elevation (STEMI) myocardial infarction involving other coronary artery of inferior wall; K44.9 Diaphragmatic hernia without obstruction or gangrene; M47.815 Spondylosis without myelopathy or radiculopathy, thoracolumbar region; R07.9 Chest pain, unspecified
CPT/HCPCS: 75574; J3490; Q9967